=== PATIENT | female | born 1935 | race Caucasian/White ===

== ENCOUNTER 2017-09-21 15:58 | Emergency (ER) | payer MEDICARE ==
[~2017-09-21] VITALS: Ht 157.5 cm; Wt 90.0 kg
[~2017-09-21 15:58] MED LIST: ACET500C5 PO; ALBU8.5H8 INH; AMIT10TA PO; ATOR10TA9 PO; CALC1CAP8 PO; CHOL200024 PO; CITA10TA8 PO; DICL500C PO; FLUT1DIS3 INH; FURO20TA3 PO; LACT1CAP13 PO; LEVO125T PO; LISI40TA PO; LORA10TA75 PO; POTA10TA11 PO; TIOT18CA INH
[2017-09-21 16:00] VITALS: BP 130/84
[2017-09-21] MEDS ORDERED: CHOL10003 PO (16:44)
[2017-09-21] MEDS ORDERED: CITA20TA9 PO (16:46)
[2017-09-21] MEDS ORDERED: RIVA15TA PO (16:46)
[2017-09-21] MEDS ORDERED: METO50TA82 PO (16:47)
[2017-09-21] MEDS ORDERED: FLUT1DIS5 IH (16:48)
[2017-09-21] MEDS ORDERED: LEVO88TA4 PO (16:52)
== END 2017-09-21 17:57 | disposition home or self-care (01) ==
LOC: ED 17:20
DX: R60.0 Localized edema (principal); J44.9 Chronic obstructive pulmonary disease, unspecified; E78.00 Pure hypercholesterolemia, unspecified; E03.9 Hypothyroidism, unspecified; I10 Essential (primary) hypertension
CPT/HCPCS: 99284

== ENCOUNTER → 2017-11-10 | Outpatient (CLI) | payer MEDICARE ==
[~2017-11-10] MED LIST changes: +CHOL10003 PO; +CITA20TA9 PO; +FLUT1DIS5 IH; +LEVO88TA4 PO; +METO50TA82 PO; +RIVA15TA PO
== END | disposition home or self-care (01) ==
LOC: WOUND 12:59
PROVIDERS: ATTEND Internal Medicine
DX: S61.401A Unspecified open wound of right hand, initial encounter (principal); J44.9 Chronic obstructive pulmonary disease, unspecified; E03.9 Hypothyroidism, unspecified; I48.91 Unspecified atrial fibrillation; I11.0 Hypertensive heart disease with heart failure; I50.9 Heart failure, unspecified; E78.5 Hyperlipidemia, unspecified; M13.862 Other specified arthritis, left knee; M13.861 Other specified arthritis, right knee; F32.9 Major depressive disorder, single episode, unspecified; Z96.643 Presence of artificial hip joint, bilateral; Z90.710 Acquired absence of both cervix and uterus; Z87.891 Personal history of nicotine dependence; X58.XXXA Exposure to other specified factors, initial encounter; Y93.89 Activity, other specified; Y92.89 Other specified places as the place of occurrence of the external cause; Y99.8 Other external cause status
CPT/HCPCS: G0463; WOU0463

== ENCOUNTER → 2017-11-17 | Outpatient (CLI) | payer MEDICARE | END | disposition home or self-care (01) | LOC: WOUND 13:00 | PROVIDERS: ATTEND Internal Medicine | DX: S61.401D Unspecified open wound of right hand, subsequent encounter (principal); E78.5 Hyperlipidemia, unspecified; E03.9 Hypothyroidism, unspecified; I11.0 Hypertensive heart disease with heart failure; I50.9 Heart failure, unspecified; F32.9 Major depressive disorder, single episode, unspecified; I48.91 Unspecified atrial fibrillation; G89.4 Chronic pain syndrome; M13.861 Other specified arthritis, right knee; M13.862 Other specified arthritis, left knee; J44.9 Chronic obstructive pulmonary disease, unspecified; Z96.643 Presence of artificial hip joint, bilateral; Z87.891 Personal history of nicotine dependence; Z90.710 Acquired absence of both cervix and uterus; X58.XXXD Exposure to other specified factors, subsequent encounter | CPT/HCPCS: G0463; WOU0463 ==

== ENCOUNTER 2018-01-20 05:04 | Inpatient (IN) | payer MEDICARE ==
[~2018-01-20] VITALS: Ht 165.1 cm; Wt 95.3 kg
[2018-01-20] MEDS ORDERED: SODIUM CHLORIDE FLUSH 10ML SYR IVF ONE (05:30)
[2018-01-20] MEDS ORDERED: ACETAMINOPHEN 325 MG TABLET PO ONE (05:30)
[2018-01-20] MEDS ORDERED: MORPHINE SULFATE 4 MG/ML, 1ML ONE (05:55)
[2018-01-20] MEDS ORDERED: morphine SULFATE 10 MG/ML, 1ML IVPush ONE (06:00)
[2018-01-20 06:05] LABS: BASOPHILS # (AUTO) 0.03 x10^3/uL (0-0.1); BASOPHILS % (AUTO) 1 % (0-1); EOSINOPHILS % (AUTO) 0 % (1-7); LYMPHOCYTES # (AUTO) 1.12 x10^3/uL (1-3.4); LYMPHOCYTES % (AUTO) 16 % (22-44); MD NO; MEAN CORPUSCULAR HEMOGLOBIN 29.4 pg (27.0-34.8); MEAN CORPUSCULAR HGB CONC 32.9 g/dL (32.4-35.8); MEAN CORPUSCULAR VOLUME 89.6 fL (80-100); MEAN PLATELET VOLUME 8.3 fL (7.4-10.4); MONOCYTES # (AUTO) 0.04 x10^3/uL (0.2-0.8); MONOCYTES % (AUTO) 1 % (2-9); NEUTROPHILS # (AUTO) 5.88 x10^3/uL (1.8-6.8); NEUTROPHILS % (AUTO) 83 % (42-75); PLATELET COUNT 357 x10^3/uL (130-400); RED BLOOD COUNT 4.56 x10^6/uL (3.82-5.3); RED CELL DISTRIBUTION WIDTH 14.8 % (9.6-15.2)
[2018-01-20 06:09] LABS: ALBUMIN 3.5 g/dL (3.4-5.0); ANION GAP 8 mmol/L (5-15); CALCIUM 10.9 mg/dL (8.5-10.1); CHLORIDE 108 mmol/L (98-107)
[2018-01-20 06:12] LABS: CREATININE 0.89 mg/dL (0.55-1.02)
[2018-01-20 06:13] LABS: ALANINE AMINOTRANSFERASE 19 U/L (12-78); ALKALINE PHOSPHATASE 96 U/L (45-117); BILIRUBIN,TOTAL 0.5 mg/dL (0.2-1.0)
[2018-01-20] MEDS: MORPHINE SULFATE 4 MG/ML, 1ML IVPush PRN ×2 (06:15→06:23)
[2018-01-20] MEDS ORDERED: LORazepam 2 MG/ML, 1ML ONE (07:28)
[2018-01-20] MEDS ORDERED: LORazepam 2 MG/ML, 1ML IVPush ONE (07:30)
[2018-01-20 07:40] LABS: MICROSCOPIC INDICATED
[2018-01-20] MEDS ORDERED: METO25TA35 PO (07:52)
[2018-01-20 08:21] LABS: CULTURE INDICATED? NO
[2018-01-20] MEDS ORDERED: NS + 20MEQ KCL 1,000 ML IV SCH (09:10)
[2018-01-20] MEDS: LORATADINE 10 MG TABLET PO SCH (09:30)
[2018-01-20] MEDS ORDERED: TEMPLATE NON-FORMULARY MED. (Albuterol Sulfate (Proair Hfa) 0 PUFFS) INH PRN (09:30)
[2018-01-20] MEDS ORDERED: TEMPLATE NON-FORMULARY MED. (Fluticasone/Salmeterol** (Advair 500-50 Diskus**) 1 PUFF) IH SCH (09:30)
[2018-01-20] MEDS ORDERED: ENOXAPARIN 40 MG/0.4 ML SQ SCH (09:30)
[2018-01-20] MEDS: SENNA/DOCUSATE TABLET PO SCH (09:30)
[2018-01-20] MEDS: METOPROLOL TARTRATE 25 MG TABLET PO SCH ×2 (09:30→19:52)
[2018-01-20] MEDS ORDERED: hydrALAzine 20 MG/ML, 1ML IV PRN (09:30)
[2018-01-20] MEDS ORDERED: RIVAROXABAN 15 MG TABLET PO SCH (09:30)
[2018-01-20] MEDS ORDERED: TEMPLATE NON-FORMULARY MED. (Tiotropium Bromide** (Spiriva**) 18 MCG) INH SCH (09:30)
[2018-01-20] MEDS: CITALOPRAM 20 MG TABLET PO SCH (09:30)
[2018-01-20] MEDS: ACETAMINOPHEN 650 MG/20.3 ML UDC PO SCH (09:30)
[2018-01-20] MEDS ORDERED: POLYETHYLENE GLYCOL 17 GM PACKET PO PRN (09:30)
[2018-01-20] MEDS ORDERED: FUROSEMIDE 20 MG TABLET PO PRN (09:30)
[2018-01-20] MEDS: LEVOTHYROXINE 88 MCG TABLET PO SCH (09:30)
[2018-01-20] MEDS ORDERED: LABETALOL 5MG/ML, 20ML IVPush PRN (09:30)
[2018-01-20] MEDS ORDERED: DOCUSATE 100 MG CAPSULE PO PRN (09:30)
[2018-01-20] MEDS ORDERED: ENALAPRILAT 1.25 MG/ML, 2ML IV PRN (09:30)
[2018-01-20] MEDS ORDERED: ACETAMINOPHEN 325 MG TABLET PO PRN (09:30)
[2018-01-20] MEDS ORDERED: NS + 20MEQ KCL 1,000 ML IV ONE (09:44)
[2018-01-20 10:03] LABS: FREE T4 (FREE THYROXINE) 1.27 ng/dL (0.76-1.46); THYROID STIMULATING HORMONE 0.307 mIU/L (0.358-3.740)
[2018-01-20 11:00] VITALS: BP 159/82
[2018-01-20] MEDS: FLUTICASONE/VILANTEROL 200-25MCG/INH INH SCH (11:00)
[2018-01-20 11:20] VITALS: BP 159/82
[2018-01-20] MEDS ORDERED: IPRATROPIUM 0.5 MG/2.5 ML INHA HHN SCH (11:30)
[2018-01-20] MEDS ORDERED: ALBUTEROL SULFATE 2.5 MG/3 ML NPPB PRN (11:30)
[2018-01-20 13:30] VITALS: BP 153/71
[2018-01-20] MEDS ORDERED: RIVA20TA PO (13:33)
[2018-01-20 19:33] VITALS: BP 138/68
[2018-01-20] MEDS ORDERED: RIVAROXABAN 20 MG TABLET PO SCH (21:00)
[2018-01-20] MEDS ORDERED: AMITRIPTYLINE 10 MG TABLET PO SCH (21:00)
[2018-01-20] MEDS ORDERED: ATORVASTATIN 10 MG TABLET PO SCH (21:00)
[2018-01-21 01:29] VITALS: BP 169/74
[2018-01-21] MEDS: LEVOTHYROXINE 88 MCG TABLET PO SCH (09:47)
[2018-01-21] MEDS: LORATADINE 10 MG TABLET PO SCH (09:48)
[2018-01-21] MEDS: ACETAMINOPHEN 650 MG/20.3 ML UDC PO SCH (09:48)
[2018-01-21] MEDS: METOPROLOL TARTRATE 25 MG TABLET PO SCH (09:48)
[2018-01-21] MEDS: CITALOPRAM 20 MG TABLET PO SCH (09:48)
[2018-01-21] MEDS: FLUTICASONE/VILANTEROL 200-25MCG/INH INH SCH (09:48)
[2018-01-21] MEDS: SENNA/DOCUSATE TABLET PO SCH (09:48)
[2018-01-21 12:00] VITALS: BP 158/70
== END 2018-01-21 12:35 | disposition home health service (06) | DRG 71 ==
LOC: ED 05:36 → EDIP 08:41 → SUATTDRO 09:03 → 4WST 10:53 → DCLOUNGE 01-21 12:30
PROVIDERS: ADMIT Internal Medicine; ATTEND Family Medicine
PROC: 0T9B70Z Drainage of Bladder with Drainage Device, Via Natural or Artificial Opening (ICD-10-PCS; principal; 2018-01-20)
DX: G93.41 Metabolic encephalopathy (principal); F05 Delirium due to known physiological condition; G30.9 Alzheimer's disease, unspecified; F02.81 Dementia in other diseases classified elsewhere, unspecified severity, with behavioral disturbance; I48.91 Unspecified atrial fibrillation; J44.9 Chronic obstructive pulmonary disease, unspecified; E03.9 Hypothyroidism, unspecified; I10 Essential (primary) hypertension
CPT/HCPCS: 36415; 70450; 71045; 72131; 72192; 80053; 81001; 84439; 84443; 85025; 93005; 94640; 96374; 96375; J3480; J7644; J2060; J2270

== ENCOUNTER 2018-06-12 17:04 | Inpatient (IN) | payer MEDICARE ==
[~2018-06-12] VITALS: Ht 160 cm; Wt 97.1 kg
[~2018-06-12 17:04] MED LIST changes: +METO25TA35 PO; +RIVA20TA PO
[2018-06-12] MEDS ORDERED: LIDOCAINE 1%-EPI 1:100K, 30ML ONE (17:19)
[2018-06-12] MEDS ORDERED: ONDANSETRON 2MG/ML, 2ML ONE ×3 (17:25→21:59)
[2018-06-12] MEDS ORDERED: FENTANYL PF 100 MCG/2ML ONE ×2 (17:26→21:20)
[2018-06-12] MEDS ORDERED: LORA10TA62 PO (17:47)
[2018-06-12] MEDS ORDERED: ASPI-515 PO (17:48)
[2018-06-12] MEDS ORDERED: CLOB15CR19 TP (17:50)
[2018-06-12] MEDS ORDERED: FENTANYL PF 100 MCG/2ML IV ONE ×2 (18:00→18:30)
[2018-06-12] MEDS ORDERED: SODIUM CHLORIDE FLUSH 10ML SYR IVF ONE (18:00)
[2018-06-12] MEDS ORDERED: PLEASE ENTER HEIGHT AND WEIGHT MC SCH (18:00)
[2018-06-12 18:01] LABS: BASOPHILS # (AUTO) 0.09 x10^3/uL (0-0.1); BASOPHILS % (AUTO) 1 % (0-1); EOSINOPHILS % (AUTO) 2 % (1-7); LYMPHOCYTES # (AUTO) 2.26 x10^3/uL (1-3.4); LYMPHOCYTES % (AUTO) 26 % (22-44); MD NO; MEAN CORPUSCULAR HEMOGLOBIN 30.6 pg (27.0-34.8); MEAN CORPUSCULAR HGB CONC 33.8 g/dL (32.4-35.8); MEAN CORPUSCULAR VOLUME 90.6 fL (80-100); MEAN PLATELET VOLUME 8.1 fL (7.4-10.4); MONOCYTES # (AUTO) 0.82 x10^3/uL (0.2-0.8); MONOCYTES % (AUTO) 10 % (2-9); NEUTROPHILS % (AUTO) 61 % (42-75); PLATELET COUNT 287 x10^3/uL (130-400); RED BLOOD COUNT 3.91 x10^6/uL (3.82-5.3); RED CELL DISTRIBUTION WIDTH 14.4 % (9.6-15.2)
[2018-06-12 18:09] LABS: INTERNATIONAL NORMALIZED RATIO 1.06 (0.93-1.1); PROTHROMBIN TIME 10.9 Seconds (9.6-11.5)
[2018-06-12 18:12] LABS: ALANINE AMINOTRANSFERASE 18 U/L (12-78); ALBUMIN 2.8 g/dL (3.4-5.0); ANION GAP 5 mmol/L (5-15); CALCIUM 9.1 mg/dL (8.5-10.1); CHLORIDE 108 mmol/L (98-107); CREATININE 0.68 mg/dL (0.55-1.02)
[2018-06-12 18:15] LABS: ALKALINE PHOSPHATASE 93 U/L (45-117); BILIRUBIN,TOTAL 0.5 mg/dL (0.2-1.0); TOTAL PROTEIN 5.5 g/dL (6.4-8.2)
[2018-06-12] MEDS ORDERED: FENTANYL PF 100 MCG/2ML IV PRN ×2 (18:30→22:00)
[2018-06-12] MEDS ORDERED: ONDANSETRON 2MG/ML, 2ML IVPush ONE (18:30)
[2018-06-12] MEDS ORDERED: AMPICILLIN/SULBACTAM 3 GM in SODIUM CHLORIDE 0.9% 100 ML IV ONE (18:30)
[2018-06-12] MEDS ORDERED: SODIUM CHLORIDE 0.9% 1,000 ML IV SCH (19:25)
[2018-06-12] MEDS ORDERED: ONDANSETRON ODT 4 MG PO PRN (19:30)
[2018-06-12] MEDS ORDERED: POLYETHYLENE GLYCOL 17 GM PACKET PO PRN (19:30)
[2018-06-12] MEDS ORDERED: AMPICILLIN/SULBACTAM 1,500 MG in SODIUM CHLORIDE 0.9% 50 ML IV SCH (19:30)
[2018-06-12] MEDS ORDERED: ONDANSETRON 2MG/ML, 2ML IVPush PRN (19:30)
[2018-06-12] MEDS ORDERED: OXYcodone IR 5MG TABLET PO PRN (19:30)
[2018-06-12] MEDS ORDERED: ALBUTEROL SULFATE 2.5 MG/3 ML NPPB PRN (19:30)
[2018-06-12 20:46] VITALS: BP 97/59
[2018-06-12] MEDS: FLUTICASONE/VILANTEROL 200-25MCG/INH INH SCH (21:00)
[2018-06-12] MEDS ORDERED: CEFAZOLIN 1,000 MG ONE (21:59)
[2018-06-12] MEDS ORDERED: SUCCINYLCHOLINE 20 MG/ML, 10ML ONE (21:59)
[2018-06-12] MEDS ORDERED: PROPOFOL 10 MG/ML, 20ML ONE (21:59)
[2018-06-12] MEDS ORDERED: ACETAMINOPHEN 325 MG TABLET PO PRN (22:00)
[2018-06-12] MEDS ORDERED: METOPROLOL 1 MG/ML, 5ML IV PRN (22:00)
[2018-06-12] MEDS ORDERED: MIDAZOLAM 1 MG/ML, 2ML IV PRN (22:00)
[2018-06-12] MEDS ORDERED: OXYcodone 5 MG/5 ML ORAL.SOL UDC PO PRN (22:00)
[2018-06-12] MEDS ORDERED: EPHEDRINE 50 MG/ML, 1ML IM PRN (22:00)
[2018-06-12] MEDS ORDERED: EPHEDRINE 50 MG/ML, 1ML IVPush PRN (22:00)
[2018-06-12] MEDS ORDERED: MORPHINE SULFATE 4 MG/ML, 1ML IVPush PRN (22:00)
[2018-06-12] MEDS ORDERED: PROMETHAZINE 25 MG SUPP PR PRN (22:00)
[2018-06-12] MEDS ORDERED: ALBUTEROL/IPRATROPIUM 2.5MG/0.5MG, 3 ML NPPB PRN (22:00)
[2018-06-12] MEDS ORDERED: ONDANSETRON ODT 8 MG PO PRN (22:00)
[2018-06-12] MEDS ORDERED: PROMETHAZINE 12.5 MG SUPP PR PRN (22:00)
[2018-06-12] MEDS: morphine SULFATE 10 MG/ML, 1ML IVPush PRN ×2 (23:16→23:42)
[2018-06-13] MEDS: METOPROLOL TARTRATE 25 MG TABLET PO SCH ×3 (00:05→21:58)
[2018-06-13] MEDS: ATORVASTATIN 10 MG TABLET PO SCH ×2 (00:07→21:58)
[2018-06-13 00:36] VITALS: BP 109/69
[2018-06-13 04:43] VITALS: BP 121/49
[2018-06-13] MEDS: CEFAZOLIN PMX 2GM/50ML 50 ML IV SCH ×3 (05:28→21:58)
[2018-06-13] MEDS ORDERED: DIPHENHYDRAMINE 25 MG CAPSULE PO ONE (05:30)
[2018-06-13 05:48] LABS: ANION GAP 5 mmol/L (5-15); CALCIUM 9.1 mg/dL (8.5-10.1); CHLORIDE 110 mmol/L (98-107)
[2018-06-13 06:00] LABS: BASOPHILS # (AUTO) 0.05 x10^3/uL (0-0.1); BASOPHILS % (AUTO) 1 % (0-1); EOSINOPHILS % (AUTO) 1 % (1-7); LYMPHOCYTES # (AUTO) 2.09 x10^3/uL (1-3.4); LYMPHOCYTES % (AUTO) 25 % (22-44); MD NO; MEAN CORPUSCULAR HEMOGLOBIN 30.5 pg (27.0-34.8); MEAN CORPUSCULAR HGB CONC 33.8 g/dL (32.4-35.8); MEAN CORPUSCULAR VOLUME 90.2 fL (80-100); MEAN PLATELET VOLUME 8.4 fL (7.4-10.4); MONOCYTES # (AUTO) 1.02 x10^3/uL (0.2-0.8); MONOCYTES % (AUTO) 12 % (2-9); NEUTROPHILS # (AUTO) 5.14 x10^3/uL (1.8-6.8); NEUTROPHILS % (AUTO) 61 % (42-75); PLATELET COUNT 222 x10^3/uL (130-400); RED BLOOD COUNT 3.03 x10^6/uL (3.82-5.3); RED CELL DISTRIBUTION WIDTH 14.4 % (9.6-15.2)
[2018-06-13 06:48] VITALS: BP 97/62
[2018-06-13] MEDS: FLUTICASONE/VILANTEROL 200-25MCG/INH INH SCH (09:00)
[2018-06-13] MEDS: LEVOTHYROXINE 88 MCG TABLET PO SCH (09:11)
[2018-06-13] MEDS: IPRATROPIUM 0.5 MG/2.5 ML INHA NPPB SCH ×3 (10:03→20:05)
[2018-06-13] MEDS: LACTOBACILLUS CHEW TABLET PO SCH (10:43)
[2018-06-13] MEDS: CHOLECALCIFEROL 1,000 UNIT TABLET PO SCH ×2 (10:44)
[2018-06-13] MEDS: CITALOPRAM 20 MG TABLET PO SCH (10:44)
[2018-06-13 10:50] VITALS: BP 140/54
[2018-06-13 12:40] VITALS: BP 127/50
[2018-06-13] MEDS: POLYETHYLENE GLYCOL 17 GM PACKET PO SCH (14:17)
[2018-06-13] MEDS: ACETAMINOPHEN 325 MG TABLET PO PRN (18:37)
[2018-06-13 19:39] VITALS: BP 114/62
[2018-06-14 01:28] VITALS: BP 108/57
[2018-06-14] MEDS: IPRATROPIUM 0.5 MG/2.5 ML INHA NPPB SCH ×4 (03:00→20:10)
[2018-06-14] MEDS: ASPIRIN 81 MG TABLET EC PO SCH (07:30)
[2018-06-14] MEDS: ACETAMINOPHEN 325 MG TABLET PO PRN ×2 (07:30→18:32)
[2018-06-14] MEDS: LEVOTHYROXINE 88 MCG TABLET PO SCH (07:30)
[2018-06-14] MEDS: FLUTICASONE/VILANTEROL 200-25MCG/INH INH SCH (09:09)
[2018-06-14] MEDS: LACTOBACILLUS CHEW TABLET PO SCH (09:11)
[2018-06-14] MEDS: CHOLECALCIFEROL 1,000 UNIT TABLET PO SCH ×2 (09:11)
[2018-06-14] MEDS: METOPROLOL TARTRATE 25 MG TABLET PO SCH ×2 (09:11→21:37)
[2018-06-14] MEDS: CITALOPRAM 20 MG TABLET PO SCH (09:11)
[2018-06-14] MEDS: POLYETHYLENE GLYCOL 17 GM PACKET PO SCH (09:12)
[2018-06-14 12:13] VITALS: BP 103/61
[2018-06-14 19:35] VITALS: BP 136/69
[2018-06-14] MEDS: ATORVASTATIN 10 MG TABLET PO SCH (21:37)
[2018-06-15] MEDS: IPRATROPIUM 0.5 MG/2.5 ML INHA NPPB SCH ×3 (03:00→14:50)
[2018-06-15] MEDS: LEVOTHYROXINE 88 MCG TABLET PO SCH (06:08)
[2018-06-15] MEDS: ASPIRIN 81 MG TABLET EC PO SCH (06:08)
[2018-06-15 07:36] VITALS: BP 104/70
[2018-06-15] MEDS: CHOLECALCIFEROL 1,000 UNIT TABLET PO SCH ×2 (09:00→09:31)
[2018-06-15] MEDS: FLUTICASONE/VILANTEROL 200-25MCG/INH INH SCH (09:00)
[2018-06-15] MEDS: CITALOPRAM 20 MG TABLET PO SCH (09:30)
[2018-06-15] MEDS: LACTOBACILLUS CHEW TABLET PO SCH (09:30)
[2018-06-15] MEDS: METOPROLOL TARTRATE 25 MG TABLET PO SCH (09:30)
[2018-06-15] MEDS: POLYETHYLENE GLYCOL 17 GM PACKET PO SCH (09:31)
[2018-06-15] MEDS: ACETAMINOPHEN 325 MG TABLET PO PRN (10:51)
[2018-06-15 13:00] VITALS: BP 95/65
== END 2018-06-15 17:04 | disposition home health service (06) | DRG 604 ==
LOC: ED 19:24 → SUATTDRO 19:24 → EDIP 19:25 → 4NOR 20:20
PROVIDERS: ADMIT Hospitalist; ATTEND Hospitalist
PROC: 0HQLXZZ Repair Left Lower Leg Skin, External Approach (ICD-10-PCS; principal; 2018-06-12 21:30)
DX: S81.812A Laceration without foreign body, left lower leg, initial encounter (principal); E43 Unspecified severe protein-calorie malnutrition; J96.11 Chronic respiratory failure with hypoxia; S87.82XA Crushing injury of left lower leg, initial encounter; J44.9 Chronic obstructive pulmonary disease, unspecified; E78.5 Hyperlipidemia, unspecified; E89.0 Postprocedural hypothyroidism; F03.90 Unspecified dementia, unspecified severity, without behavioral disturbance, psychotic disturbance, mood disturbance, and anxiety; I10 Essential (primary) hypertension; I48.0 Paroxysmal atrial fibrillation; W23.0XXA Caught, crushed, jammed, or pinched between moving objects, initial encounter; Z79.82 Long term (current) use of aspirin; Y93.89 Activity, other specified; Y92.89 Other specified places as the place of occurrence of the external cause; Y99.8 Other external cause status; Z68.37 Body mass index [BMI] 37.0-37.9, adult
CPT/HCPCS: 36415; 71045; 80048; 80053; 83735; 84100; 85025; 85610; 85730; 93005; 94640; 96365; 96375; 96376; 97163; 99285; J0295; J0690; J2405; J2704; J3010; J7644; J0330; J2270; J7030; Q0163